=== PATIENT | male | born 1950 | race Caucasian/White ===

== ENCOUNTER 2016-09-06 17:07 | Emergency (ER) | payer MEDICARE ==
[~2016-09-06] VITALS: Ht 177.8 cm; Wt 68.0 kg
[2016-09-06 17:12] VITALS: BP 128/86
== END 2016-09-06 18:21 | disposition left against medical advice (07) ==
LOC: ED 18:15
DX: S00.93XA Contusion of unspecified part of head, initial encounter (principal); F10.120 Alcohol abuse with intoxication, uncomplicated; F17.200 Nicotine dependence, unspecified, uncomplicated; E11.9 Type 2 diabetes mellitus without complications; W18.39XA Other fall on same level, initial encounter; Y93.89 Activity, other specified; Y92.89 Other specified places as the place of occurrence of the external cause; Y99.8 Other external cause status
CPT/HCPCS: 70450

== ENCOUNTER 2018-03-04 16:46 | Emergency (ER) | payer MEDICARE ==
[~2018-03-04] VITALS: Ht 172.7 cm; Wt 63.5 kg
[2018-03-04 17:00] VITALS: BP 130/94
--- NOTE | 2018-03-04 17:55 | NUR ---
pt found standing at bedside urinating on the floor. pt apologizes. reoriented and assisted back to bed
--- NOTE | 2018-03-04 18:53 | NUR ---
pt not found in room, hallway at this time
== END 2018-03-04 19:02 | disposition left against medical advice (07) ==
LOC: ED 18:56
DX: F10.229 Alcohol dependence with intoxication, unspecified (principal); Z72.9 Problem related to lifestyle, unspecified
CPT/HCPCS: 99283

== ENCOUNTER 2019-09-21 12:21 | Emergency (ER) | payer MEDICARE ==
[~2019-09-21] VITALS: Ht 167.6 cm; Wt 70.7 kg
--- NOTE | 2019-09-21 12:27 | NUR ---
[id number]. IN BATHROOM.
--- NOTE | 2019-09-21 12:48 | NUR ---
PT C/O BRUISING TO LEFT CHEST AND SHOULDER DOWN ARM AFTER FALL FROM ONE WEEK AGO THAT PT DOES NOT RECALL HOW IT EXACTLY HAPPENED. PT STATES, "I COULD HAVE BEEN TOO DRUNK." PT DENIES HEAD OR NECK PAIN. DAYANNA PAC AT BEDSIDE. WAITING FOR ORDERS.
[2019-09-21] MEDS ORDERED: HYDROcodone/APAP 5/325 TABLET ONE (12:59)
[2019-09-21] MEDS ORDERED: HYDROcodone/APAP 5/325 TABLET PO ONE (13:00)
[2019-09-21 13:09] LABS: BASOPHILS # (AUTO) 0.08 x10^3/uL (0-0.1); BASOPHILS % (AUTO) 1 % (0-1); EOSINOPHILS # (AUTO) 0.05 x10^3/uL (0-0.4); EOSINOPHILS % (AUTO) 1 % (1-7); LYMPHOCYTES # (AUTO) 1.37 x10^3/uL (1-3.4); LYMPHOCYTES % (AUTO) 18 % (22-44); MD NO; MEAN CORPUSCULAR HEMOGLOBIN 33.7 pg (27.5-34.5); MEAN CORPUSCULAR HGB CONC 33.6 g/dL (33.2-36.2); MEAN CORPUSCULAR VOLUME 100.3 fL (81-97); MEAN PLATELET VOLUME 6.9 fL (7.4-10.4); MONOCYTES % (AUTO) 19 % (2-9); NEUTROPHILS # (AUTO) 4.68 x10^3/uL (1.8-6.8); NEUTROPHILS % (AUTO) 62 % (42-75); PLATELET COUNT 286 x10^3/uL (130-400); RED BLOOD COUNT 4.38 x10^6/uL (4.38-5.82); RED CELL DISTRIBUTION WIDTH 14.1 % (9.4-14.8)
[2019-09-21 13:20] LABS: ALBUMIN 3.8 g/dL (3.4-5.0); ANION GAP 9 mmol/L (5-15); CALCIUM 9.1 mg/dL (8.5-10.1); CHLORIDE 104 mmol/L (98-107); CREATININE 0.85 mg/dL (0.7-1.3)
[2019-09-21] MEDS ORDERED: KETOROLAC 30 MG/1 ML ONE (14:14)
[2019-09-21] MEDS ORDERED: KETOROLAC 30 MG/1 ML IM ONE (14:30)
[2019-09-21 15:03] VITALS: BP 158/89
== END 2019-09-21 15:05 | disposition home or self-care (01) ==
LOC: ED 14:44
DX: S20.212A Contusion of left front wall of thorax, initial encounter (principal); S40.012A Contusion of left shoulder, initial encounter; I10 Essential (primary) hypertension; E11.9 Type 2 diabetes mellitus without complications; W01.0XXA Fall on same level from slipping, tripping and stumbling without subsequent striking against object, initial encounter; Y93.89 Activity, other specified; Y92.009 Unspecified place in unspecified non-institutional (private) residence as the place of occurrence of the external cause; Y99.8 Other external cause status
CPT/HCPCS: 36415; 71046; 73030; 80048; 82040; 85025; 96372; 99284; J1885